=== PATIENT | female | born 1935 | race Caucasian/White ===

== ENCOUNTER 2017-08-18 11:00 | Outpatient (RCR) ==
--- NOTE | 2017-08-08 13:10 | RS.OPPTEV2 ---
Date of Note: 08/06/17 Visit #: 1 Date of Evaluation: 08/06/17 Payer Source: MEDICARE Treatment Diagnosis: Gait abnormality, weakness, history of falls History of Condition/Mechanism of Injury:: Patient reports progressive weakness , decreased endurance, and difficulty walking since her stroke. States she has no energy and feels like she would stay in bed all day if she could. Prior Level of Function.....Patient was independent with: ADL's, Self Care, Ambulation/Mobility, Community Integration/Access Functional Limitations: Standing (transfers sit to stand), Ambulation, Community Access/Integration Current Subjective/complaints:: Patient reports feeling "washed out" all the time. States she feels very weak, with no energy. States she has felt this weak since having the stroke last week. She has used a rollator since the stroke, which was November 2015. She can go short distances without anything, but usually uses the rollator. She reports difficulty getting out of a low seat. She uses a lift chair at home. States she does not use it to stand her up completely. Reports times of having difficulty lifting the left LE up onto her bed. She lives alone. She has someone help her with household activties and shopping. She does her own personal care. States sometimes it is all she can do to take a shower and get dress due to her weakness and low endurance. Reports being under a lot of stress due to being told she can no longer drive. States she lives in a two story home, but does not need to use the stairs. She has a ramp to get into her home. States she has to walk through the living room and dining room to get to the kitchen from her bed room. States that distance wears her out. Also reports difficulty standing to perform activities in the kitchen. She gets short of air at night with much activity. States sometimes the left LE does not move when she wants it to. she has fallen ~ twice over the last 6 months. States she did stumble last week, but emphasizes that she did not fall. 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 Patient's Goals: Her goal is to gain strength and increased safety with activity. Functional Outcome Measure Tinetti: 11 (08/26=60.72% impairment) - G Codes & Severity Modifier G Codes & Modifier: Mob current CL. Mob goal CJ Source of G Code score: Based on Tinetti Assessment Observation - Observation Inspection: Patient presents to therapy with her rollator. Posture: Forward Head, Rounded Shoulders, Increased Thoracic Kyphosis, Decreased Lumbar Lordosis, Posterior Pelvic Tilt Gait - Gait Pattern Gait Comments: Patient ambulates with a rollator, independently. She demonstrates a narrow base of support, and short stride. She demonstrates minimal foot clearance bilaterally with swing phase. Sit to stand transfers requires min to mod assist from the chair in the treatment room. Also demonstrates the need for assistance with raising the left LE onto the treatment table for bed mobility. Patient went to the bathroom and was unable to get up from the toilet without assistance. General Range of Motion: Patient demonstrates functional AROM of bilateral LE's. Muscle Strength: Left hip 4-/5 generally throughout. Right hip 4/5. Bilateral quads 4-/5. HS 4/5. Bilateral ankles 4+/5. Trunk strength 4/5. Sensation - Sensation Right Lower Extremity: Intact/Normal Left Lower Extremity: Intact/Normal Balance - Sitting Balance Static Sitting Balance: Good Dynamic Sitting Balance: Good - Standing Balance Static Standing Balance: Fair (+) Dynamic Standing Balance: Fair (+) Coordination - Tests Left Toe Tapping: Moderate Deviation Right Toe Tapping: Normal/Intact Interventions - Exercise/Activities/Manual Therapy Exercises/Activities: NA Manual Therapy: N/A - Charges Total Direct Minutes: 50 mins Total Treatment Time: 50 mins Procedures billed for this date of service:: EVAL Medium Assessment Assessment: 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 She reports weakness and decreased activity tolerance. States she has difficulty tolerating prolonged standing and walking and feels generally weak and fatigued. She exhibits bilateral hip and knee weakness, with greater weakness on the left LE. She scores 08/26 on the Tinetti Assessment, which indicates she is at a high risk for falls. She also demonstrates impaired coordination of the left LE, which adds to her risk for falls. She demonstrates potential to benefit from LE strengthening and safety training with all mobilty to improve her safety and independence. Patient Education: Education of diagnosis, Education of Plan of Care Rehab Potential: Good Short Term Goals Goal #1: Patient independent and compliant with HEP. Goal to be met by: 08/21/17 Goal #2: Bilateral hip strength 4/5. Goal to be met by: 08/21/17 Goal #3: Bilateral quad strength 4/5. Goal to be met by: 08/21/17 Goal #4: Pt to perform sit to stand from seat height of 18 inches w/ CGA of one. Goal to be met by: 08/21/17 Legal Editor Goals Goal #1: Patient knows HEP and to continue with exercises following D/C from therapy Goal to be met by: 09/15/17 Goal #2: Score on Tinetti Assessment improved to 19/28,showing less fall risk. Goal to be met by: 09/15/17 Goal #3: Pt able to amb. community distances w/ good safety and minimal difficulty. Goal to be met by: 09/15/17 Goal #4: Pt will perform all transfers independently w/ good safety. Goal to be met by: 09/15/17 Plan - Treatment to be Provided Procedures: Therapeutic Exercises, Therapeutic Activity, Gait Training, Neuromuscular Rehab, Patient Education Modalities: No Modalities - Treatment Plan Frequency: 2-3 X week Duration: 4 weeks ORDER # VISITS AND/OR THROUGH DATE: 09/15/17 - Treatment Code (1) Leg weakness Code(s): M62.81 - MUSCLE WEAKNESS (GENERALIZED) Qualifiers: Laterality: bilateral Qualified Code(s): R29.898 - Other symptoms and signs involving the musculoskeletal system (2) Gait abnormality Code(s): R26.9 - UNSPECIFIED ABNORMALITIES OF GAIT AND MOBILITY Comments: R26.9 (3) Coordination impairment Code(s): R27.8 - OTHER LACK OF COORDINATION Comments: R27.8
--- NOTE | 2017-08-08 16:05 | RS.OPPTDN ---
Subjective Date of Note: 08/08/17 Visit #: 2 Date of Evaluation: 08/06/17 Payer Source: MEDICARE Treatment Diagnosis: Gait abnormality, weakness, history of falls Current Subjective/complaints:: Patient reports being winded after a few exercises today. States she wants to get stronger and have more energy. She would also be interested in exercises that might help improve bladder control. States she has had bladder leakage since having the stroke last year. Reports left knee pain during exercises of SAQ's today. Interventions - Exercise/Activities/Manual Therapy Exercises/Activities: Pt performed exercises in supine of SAQ's with 1 1/2# wt and HS curls with yellow theraband on the right LE 2 sets of 10. Attempted these with the left LE, but reports pain with flexion and extension of the left knee. Performed SLR bilaterally 2 X 10 reps with assistance. Performs isometric hip adduction, abduction, and trunk rotation, 2 sets of 5 reps. Also performs bridging 2 sets of 5 reps and resisted hip flexion with 1 1/2# wt. In sitting, patient performs LAQ's on the right and SAQ on the left from ~80 to 65 degrees flexion to avoid knee pain. She reports shortness of air after much exertion. Patient given rest breaks between activities. Oxygen saturation 96% during rest breaks. Manual Therapy: N/A HOME EXERCISE PROGRAM: None given at this time. - Objective Findings Observations,measurements,etc.: Patient attempts to perform sit to stand from chair height of 18 inches. She needs min to mod assist of one to perform sit to stand, after trying unsuccessully on her own. Patient went to the bathroom and required mod-max assist of one to get up from the toilet. - Charges Total Direct Minutes: 35 mins Total Treatment Time: 35 mins Procedures billed for this date of service:: EX2 Assessment: Patient tolerates exercises for the LE's and trunk. She exhibits some shortness of air during activities, which resolves with rest breaks. Sit to stand transfers are very difficult from a low surface. She demonstrates potential to benefit from strengthening exercises to increase her independence and safety. Patient Education: Education of diagnosis, Body/Joint mechanics, Home Safety, Activity Modification Short Term Goals Goal #1: Patient independent and compliant with HEP. Goal to be met by: 08/21/17 Goal #2: Bilateral hip strength 4/5. Goal to be met by: 08/21/17 Goal #3: Bilateral quad strength 4/5. Goal to be met by: 08/21/17 Goal #4: Pt to perform sit to stand from seat height of 18 inches w/ CGA of one. Goal to be met by: 08/21/17 Airline Captain Goals Goal #1: Patient knows HEP and to continue with exercises following D/C from therapy Goal to be met by: 09/15/17 Goal #2: Score on Tinetti Assessment improved to 19/28,showing less fall risk. Goal to be met by: 09/15/17 Goal #3: Pt able to amb. community distances w/ good safety and minimal difficulty. Goal to be met by: 09/15/17 Goal #4: Pt will perform all transfers independently w/ good safety. Goal to be met by: 09/15/17 Plan PLAN OF CARE EXPIRES ON:: 09/15/17 ORDER # VISITS AND/OR THROUGH DATE: 09/15/17 PLAN: Progress strengthening exercises for the LE's and trunk. May add standing exercises on next visit if patient tolerates.
--- NOTE | 2017-08-12 13:32 | RS.OPPTDN ---
Subjective Date of Note: 08/12/17 Visit #: 3 Date of Evaluation: 08/06/17 Payer Source: MEDICARE Treatment Diagnosis: Gait abnormality, weakness, history of falls Current Subjective/complaints:: Patient reports no soreness after last treatment session. States she feels like her air is cut off when lying inclined on her back for exercises. States she feels grinding and pain in the left knee during LAQ's. Interventions - Exercise/Activities/Manual Therapy Exercises/Activities: Initiated exercises in supine with patient's head and shoulders elevated. She performed resisted hip flexion with 2 # weight 2 sets of 10. Stated she felt like her air was being cut off, so exercises were discontinued in supine. In sitting, patient performs LAQ's on the right and SAQ on the left from ~80 to 65 degrees flexion to avoid knee pain with 2# weight. Performed resisted HS curls with red theraband. Alternating hip flexion with 2# weight on each ankle, 2 sets of 10 reps. Performs hip adduction isometrics with pillow. Performs bilateral shoulder flexion with ball to extend her trunk and open her chest. Also performs bilateral shoulder ER with yellow theraband. Oxygen saturation 96-97% during activites. Patient given time to rest between sets of exercises. Patient took a break to go to the bathroom. Patient unable to get up from toilet with max of one. Finally able to get patient up with mod of 2. Patient rested then performed standing exercises of mini knee bends, marching in place, alternate hip abduction and extension. Reviewed techniques to improve ease of sit to stand transfers. Discussed having feet under her knees, scooting out to edge, leaning forward, and counting to three to use momentum . Total minutes of Exercise: 42 mins Manual Therapy: N/A HOME EXERCISE PROGRAM: pillow squeeze (hip adduction isometrics) - Charges Total Direct Minutes: 42 mins Total Treatment Time: 55 mins Procedures billed for this date of service:: EX3 Assessment: Patient demonstrates great difficulty with sit to stand transfers. She has difficulty tolerating exercises in supine due to her breathing. She demonstrates the need for skilled care to progress her exercises and activities as indicated to improve her strength and independence with transfers. Patient Education: Education of diagnosis, Body/Joint mechanics, Home Exercise Program, Activity Modification Short Term Goals Goal #1: Patient independent and compliant with HEP. Goal to be met by: 08/21/17 Goal #2: Bilateral hip strength 4/5. Goal to be met by: 08/21/17 Goal #3: Bilateral quad strength 4/5. Goal to be met by: 08/21/17 Goal #4: Pt to perform sit to stand from seat height of 18 inches w/ CGA of one. Goal to be met by: 08/21/17 Long-Term Goals Goal #1: Patient knows HEP and to continue with exercises following D/C from therapy Goal to be met by: 09/15/17 Goal #2: Score on Tinetti Assessment improved to 19/28,showing less fall risk. Goal to be met by: 09/15/17 Goal #3: Pt able to amb. community distances w/ good safety and minimal difficulty. Goal to be met by: 09/15/17 Goal #4: Pt will perform all transfers independently w/ good safety. Goal to be met by: 09/15/17 Plan PLAN OF CARE EXPIRES ON:: 09/15/17 ORDER # VISITS AND/OR THROUGH DATE: 09/15/17 PLAN: Plan to continue to progress exercises as tolerated to gain increased LE strength.
--- NOTE | 2017-08-14 16:15 | RS.OPPTDN ---
Subjective Date of Note: 08/14/17 Visit #: 4 Date of Evaluation: 08/06/17 Payer Source: MEDICARE Treatment Diagnosis: Gait abnormality, weakness, history of falls Current Subjective/complaints:: Patient legs cramped a lot Friday night. States she had a hard to getting any sleep due to leg cramping. Pain Assessment - Pain Description Pain Location: left knee Current Pain Intensity: not rated, reports arthritis and grinding in the left knee w/ exercises Interventions - Exercise/Activities/Manual Therapy Exercises/Activities: Pt wished to avoid supine position for exercises. In sitting, patient performed LAQ's on the right and SAQ on the left from ~90 to 65 degrees flexion to avoid knee pain with 2# weight. Performed resisted HS curls with red theraband. Alternating hip flexion with 2# weight on each ankle, 2 sets of 10 reps. Performs hip adduction isometrics with pillow. Performs bilateral shoulder flexion with ball to extend her trunk and open her chest. . Patient given breaks to rest as she became short of breath with exercises. Patient rested then performed standing exercises of mini knee bends, marching in place, alternate hip abduction and extension. Practiced sit to stand transfers. Pt tries to stand straight up rather than leaning forward. When she follows verbal cues to lean forward, she does better and needs less assistance to stand up. Patient performed on leg press with assistance and 15# for bilateral LE's, 3 sets of 4 reps. Manual Therapy: N/A HOME EXERCISE PROGRAM: pillow squeeze (hip adduction isometrics) - Charges Total Direct Minutes: 32 mins Total Treatment Time: 50 mins Procedures billed for this date of service:: EX2 Assessment: Patient continues to have difficulty with sit to stand transfers. This seems to be due to her wanting to standing straight from the chair rather than leaning forward. She will benefit from continued instruction of proper techinque and continue LE and trunk strengthening to improve her independence with activities. Patient Education: Education of diagnosis, Body/Joint mechanics, Home Safety, Activity Modification, Education of Plan of Care Short Term Goals Goal #1: Patient independent and compliant with HEP. Goal to be met by: 08/21/17 Goal #2: Bilateral hip strength 4/5. Goal to be met by: 08/21/17 Goal #3: Bilateral quad strength 4/5. Goal to be met by: 08/21/17 Goal #4: Pt to perform sit to stand from seat height of 18 inches w/ CGA of one. Goal to be met by: 08/21/17 Field Crop Grower Goals Goal #1: Patient knows HEP and to continue with exercises following D/C from therapy Goal to be met by: 09/15/17 Goal #2: Score on Tinetti Assessment improved to 19/28,showing less fall risk. Goal to be met by: 09/15/17 Goal #3: Pt able to amb. community distances w/ good safety and minimal difficulty. Goal to be met by: 09/15/17 Goal #4: Pt will perform all transfers independently w/ good safety. Goal to be met by: 09/15/17 Plan PLAN OF CARE EXPIRES ON:: 09/15/17 ORDER # VISITS AND/OR THROUGH DATE: 09/15/17 PLAN: Continue with education and training to improve transfers and exercises to increase LE and trunk strength for increased independence.
--- NOTE | 2017-08-18 13:01 | RS.OPPTDN ---
Subjective Date of Note: 08/18/17 Visit #: 5 Date of Evaluation: 08/06/17 Payer Source: MEDICARE Treatment Diagnosis: Gait abnormality, weakness, history of falls Current Subjective/complaints:: Patient reports she has been leaning forward more to perform sit to stand transfers and can tell that it helps. Reports having a good day today. States she can tell she needs to keep working on the balance activities. Interventions - Exercise/Activities/Manual Therapy Exercises/Activities: In sitting, patient performed LAQ's on the right and SAQ on the left from ~90 to 65 degrees flexion to avoid knee pain with 2# weight, 2 sets of 10 reps each. Performed resisted HS curls with red theraband 2 sets of 10 reps. Alternating hip flexion with 2# weight on each ankle, 2 sets of 10 reps. Performs bilateral shoulder flexion with ball to extend her trunk and open her chest. . Patient given breaks to rest. She demonstrates light wheezing during exercises. Pulse ox is 95-96% when tested immediately after exercises. Patient performed standing exercises of mini knee bends, marching in place, alternate hip abduction and extension. Patient has more difficulty with left UE due to weakness. Patient performed on leg press with assistance and 15# for bilateral LE's, 3 sets of 8 reps. Performed standing dynamic balance activities. Slight forward lunge onto blue theraband balance pad with the right LE, and then returned to neutral. Left knee could not tolerate this activity with use of the pad. She was able to perform just a forward step and return to neutral on the left. Patient rested again and then performed standing dynamic weight shifting in all directions. Patient needs hands-on assistance when moving the left LE. States she does not have as much control of the left LE. Total minutes of Exercise: 34 ther ex, 12 neuro Manual Therapy: N/A HOME EXERCISE PROGRAM: pillow squeeze (hip adduction isometrics) , practice of sit to stand transfers with leaning forward. - Objective Findings Observations,measurements,etc.: Patient performs sit to stand transfers multiple times today. She demonstrates more independence as she is purposely leaning forward more as instructed during last therapy session. - Charges Total Direct Minutes: 46 mins Total Treatment Time: 56 mins Procedures billed for this date of service:: Ex 2, Neuro Assessment: Patient demonstrates more independence with Sit to stand transfers. She has been very receptive to all advice. She shows the need for increase strengthening and balance reaction activities to improve her safety with mobility. Short Term Goals Goal #1: Patient independent and compliant with HEP. Goal to be met by: 08/21/17 Goal #2: Bilateral hip strength 4/5. Goal to be met by: 08/21/17 Goal #3: Bilateral quad strength 4/5. Goal to be met by: 08/21/17 Goal #4: Pt to perform sit to stand from seat height of 18 inches w/ CGA of one. Goal to be met by: 08/21/17 Progress towards Goal:: Progressing Warehouse Foreman Goals Goal #1: Patient knows HEP and to continue with exercises following D/C from therapy Goal to be met by: 09/15/17 Goal #2: Score on Tinetti Assessment improved to 19/28,showing less fall risk. Goal to be met by: 09/15/17 Goal #3: Pt able to amb. community distances w/ good safety and minimal difficulty. Goal to be met by: 09/15/17 Goal #4: Pt will perform all transfers independently w/ good safety. Goal to be met by: 09/15/17 Plan PLAN OF CARE EXPIRES ON:: 09/15/17 ORDER # VISITS AND/OR THROUGH DATE: 09/15/17 PLAN: Continue to progress LE strengthening and balance reaction activities to improve her safety and independence.
--- NOTE | 2017-08-22 09:36 | RS.CXNS ---
Date of scheduled appointment: 08/22/17 Type: Cancel Reason for Cancel/NS: Patient's caregiver calls to report that Mrs. Medrano has been admitted to the hospital due to fluid.
== END 2017-08-28 ==
PROVIDERS: ATTEND Family Medicine
DX: R26.9 Unspecified abnormalities of gait and mobility (principal)

== ENCOUNTER 2017-08-21 09:03 | Outpatient (CLI) | END 2017-08-21 09:04 | disposition short-term general hospital (02) | LOC: AMBL 09:03 | PROVIDERS: ATTEND Family Medicine | DX: R06.02 Shortness of breath (principal); R05 Cough; R09.89 Other specified symptoms and signs involving the circulatory and respiratory systems; R06.2 Wheezing; R00.0 Tachycardia, unspecified; R07.9 Chest pain, unspecified ==

== ENCOUNTER 2017-09-23 13:00 | Outpatient (RCR) ==
--- NOTE | 2017-09-03 14:36 | RS.OPPTDN ---
Subjective Date of Note: 09/01/17 Visit #: 7 Date of Evaluation: 08/06/17 Payer Source: MEDICARE Treatment Diagnosis: Gait abnormality, weakness, history of falls Current Subjective/complaints:: Patient states she feels bettter. States she got out yesterday to the [place] [employer]. States she has had a better appetite and sleeping well. She states she wants to do as much as she can to get stronger and feel better. Interventions - Exercise/Activities/Manual Therapy Exercises/Activities: In sitting, patient performed LAQ's on the right and SAQ on the left from ~90 to 65 degrees flexion to avoid knee pain with 2# weight, 2 sets of 10 reps each. Performed resisted HS curls with red theraband 2 sets of 10 reps. Alternating hip flexion with 2# weight on each ankle, 2 sets of 10 reps. Performs bilateral shoulder flexion with ball to extend her trunk and open her chest. . Patient rested following activity with the ball. Patient performed standing exercises of mini knee bends, marching in place, alternate hip abduction and extension. Patient performed on leg press with assistance and 15# for bilateral LE's, 2 sets of 8 reps. Performed standing dynamic balance activities. Slight forward lunge onto blue theraband balance pad with the right LE, and then returned to neutral. Performs a small lunge X 5 on the left LE without the pad. Manual Therapy: N/A HOME EXERCISE PROGRAM: pillow squeeze (hip adduction isometrics) , practice of sit to stand transfers with leaning forward. - Objective Findings Observations,measurements,etc.: Patient consistently performs sit to stand transfer with CGA of one or less. - Charges Timed Code Treatment Minutes: 46 mins Total Treatment Time: 56 mins Procedures billed for this date of service:: EX2, ADL Assessment: Patient tolerates more activity today. She also requires less rest breaks with exercises. She appears in better spirits and has improved color to her face. Patient Education: Education of diagnosis, Home Exercise Program, Activity Modification Short Term Goals Goal #1: Patient independent and compliant with HEP. Goal to be met by: 08/21/17 Goal #2: Bilateral hip strength 4/5. Goal to be met by: 08/21/17 Goal #3: Bilateral quad strength 4/5. Goal to be met by: 08/21/17 Progress towards Goal:: Progressing Goal #4: Pt to perform sit to stand from seat height of 18 inches w/ CGA of one. Goal to be met by: 08/21/17 Progress towards Goal:: Met Halfway Goals Goal #1: Patient knows HEP and to continue with exercises following D/C from therapy Goal to be met by: 09/15/17 Goal #2: Score on Tinetti Assessment improved to 19/28,showing less fall risk. Goal to be met by: 09/15/17 Goal #3: Pt able to amb. community distances w/ good safety and minimal difficulty. Goal to be met by: 09/15/17 Goal #4: Pt will perform all transfers independently w/ good safety. Goal to be met by: 09/15/17 Plan PLAN OF CARE EXPIRES ON:: 09/15/17 ORDER # VISITS AND/OR THROUGH DATE: 09/15/17 PLAN: Progress balance and LE strengthening exercises.
--- NOTE | 2017-09-08 14:48 | RS.CXNS ---
Date of scheduled appointment: 09/08/17 Type: Cancel Reason for Cancel/NS: Ms. Cheng calls to cancel Navya's appointment today due to patient's knee having more pain today. They are hoping to get her into her doctor regarding her knee pain.
--- NOTE | 2017-09-09 08:59 | RS.OPPTDN ---
Subjective Date of Note: 09/03/17 Visit #: 8 Date of Evaluation: 08/06/17 Payer Source: MEDICARE Treatment Diagnosis: Gait abnormality, weakness, history of falls Current Subjective/complaints:: Patient reports that she saw her doctor yesterday for a follow up from her hospital stay. States the doctor said she is doing better. Interventions - Exercise/Activities/Manual Therapy Exercises/Activities: In sitting, patient performed LAQ's on the right and SAQ on the left from ~90 to 50 degrees flexion to avoid knee pain with 2# weight, 2 sets of 10 reps each. Performed resisted HS curls with red theraband 2 sets of 10 reps. Alternating hip flexion with 2# weight on each ankle, 2 sets of 10 reps. Performs bilateral shoulder flexion with ball to extend her trunk and open her chest. . Patient rested between sets of exercises. Patient performed on leg press with assistance and 15# for bilateral LE's, 2 sets of 8 reps. Performed standing dynamic balance activities. Slight forward lunge onto blue theraband balance pad with the right LE, and then returned to neutral. Performs a small lunge X 5 on the left LE without the pad. Patient needs CGA assist for right LE and min assiste for the left leg activity. Performs on stationary bike for 3 mins. Total minutes of Exercise: 52 mins Manual Therapy: N/A HOME EXERCISE PROGRAM: pillow squeeze (hip adduction isometrics) , practice of sit to stand transfers with leaning forward. - Charges Timed Code Treatment Minutes: 52 mins Total Treatment Time: 65 min Procedures billed for this date of service:: Ex2, ADL Assessment: Patient tolerating more activities in the department. Demonstrates difficulty with balance activities when leading with the left LE. Will benefit from continued skilled therapy to improve her balance and safety with all mobility. Patient Education: Education of diagnosis, Home Exercise Program, Activity Modification, Education of Plan of Care Short Term Goals Goal #1: Patient independent and compliant with HEP. Goal to be met by: 09/14/17 Progress towards Goal:: Progressing Goal #2: Bilateral hip strength 4/5. Goal to be met by: 09/14/17 Progress towards Goal:: Progressing Goal #3: Bilateral quad strength 4/5. Goal to be met by: 09/14/17 Progress towards Goal:: Progressing Goal #4: Pt to perform sit to stand from seat height of 18 inches w/ CGA of one. Goal to be met by: 08/21/17 Progress towards Goal:: Met Usp Goals Goal #1: Patient knows HEP and to continue with exercises following D/C from therapy Goal to be met by: 09/15/17 Progress towards goal: Progressing Goal #2: Score on Tinetti Assessment improved to 19/28,showing less fall risk. Goal to be met by: 09/15/17 Goal #3: Pt able to amb. community distances w/ good safety and minimal difficulty. Goal to be met by: 09/15/17 Goal #4: Pt will perform all transfers independently w/ good safety. Goal to be met by: 09/15/17 Progress towards goal: Progressing Plan PLAN OF CARE EXPIRES ON:: 09/15/17 ORDER # VISITS AND/OR THROUGH DATE: 09/15/17 PLAN: Will progress LE strengthening and balance activities.
--- NOTE | 2017-09-15 14:20 | RS.OPPTDN ---
Subjective Date of Note: 09/10/17 Visit #: 9 Date of Evaluation: 08/06/17 Payer Source: MEDICARE Treatment Diagnosis: Gait abnormality, weakness, history of falls Current Subjective/complaints:: Patient states her knee is better today. She went to the walk-in clinic at the [facility] and received an injeciton. States the knee feels better, but she doesn't feel good. States she has been more short of breath today and having a lot of anxiety. States she was told left knee pain may be gout. Interventions - Exercise/Activities/Manual Therapy Exercises/Activities: Patient requires min assist with transfers today. Sit to stand requires verbal cues to lean forward and physical assistance to get up from the chair. Performs LAQ's in sitting with 2.5 # weight on the right LE and no weight put on the left LE today for SAQ's, both 2 sets of 10 reps. Patient requested to rest and demonstrates labored breathing. Performed hip flexion in sitting with 2.5# on right ankle. Tolerates only 5 reps each before needing to stop to catch her breath. Pulse ox at 90% immediately after 2 sets of hip flexion exercises. Performs bilateral shoulder flexion with ball X 4 reps and then needs to stop to catch her breath. Performs standing weight shifting onto right LE on the blue theraband pad X 2 sets of 5 reps. Then sat down to rest. Pulse ox 96%. Patient performed on leg press with 15#, 4 sets of 8 reps. Patient rests between each set. After the first set, patient's O2 saturation 92%. Discussed pursed lip breathing and explained how to do it. Patient performed pursed lip breathing after each set. Advised patient that we will try to do more at her next session due to her difficulty tolerating activity today. Manual Therapy: N/A HOME EXERCISE PROGRAM: pillow squeeze (hip adduction isometrics) , practice of sit to stand transfers with leaning forward. - Objective Findings Observations,measurements,etc.: Right hip flexion 4+/5, left hip flexion 4/5. - Charges Timed Code Treatment Minutes: 33 mins Total Treatment Time: 45 mins Procedures billed for this date of service:: EX, Neuro Assessment: Patient very short of breath today. Requires more frequent rests between exercise sets due to shortness of breath. Also requires more assistance with transfers. Weight avoided on left LE today due to exacerbation of left knee pain and recent injection. Patient's dates run out this coming Friday. She has made progress and demonstrates potential to gain increased strength, balance, and safety with continued skilled therapy. Will request continuation order for 2-3 more weeks. Patient Education: Body/Joint mechanics, Education of Plan of Care Short Term Goals Goal #1: Patient independent and compliant with HEP. Goal to be met by: 09/14/17 Progress towards Goal:: Progressing Goal #2: Bilateral hip strength 4/5. Goal to be met by: 09/14/17 Progress towards Goal:: Progressing Goal #3: Bilateral quad strength 4/5. Goal to be met by: 09/14/17 Progress towards Goal:: Progressing Goal #4: Pt to perform sit to stand from seat height of 18 inches w/ CGA of one. Goal to be met by: 08/21/17 Progress towards Goal:: Met Shellfish Manager Goals Goal #1: Patient knows HEP and to continue with exercises following D/C from therapy Goal to be met by: 09/15/17 Progress towards goal: Progressing Goal #2: Score on Tinetti Assessment improved to 19/28,showing less fall risk. Goal to be met by: 09/15/17 Goal #3: Pt able to amb. community distances w/ good safety and minimal difficulty. Goal to be met by: 09/15/17 Goal #4: Pt will perform all transfers independently w/ good safety. Goal to be met by: 09/15/17 Progress towards goal: Progressing Plan PLAN OF CARE EXPIRES ON:: 09/15/17 ORDER # VISITS AND/OR THROUGH DATE: 09/15/17 PLAN: Message left with Dr. Alvarez asking for continuation order.
--- NOTE | 2017-09-15 14:49 | RS.PTSUM ---
Progress Note/Summary Date of Note: 09/15/17 Date of Evaluation: 08/06/17 Number of Visits: 10 Reporting Period for this Progress Note: 08/06/17 through 09/15/17 Current Complaints/Gains: Patient states she is feeling better. She feels she has had a set back with her breathing and the left knee bothering her. She wishes to do more therapy to get stronger and improve her balance. Objective Measurements/Presentation: Patient ambulates with rollator with consistent clearing of feet. Demonstrates SOA after ambulating to department. Patient performs sit to stand with SBA. She exhibits better form with leaning forward to get out of chair. Performs standing exercises on foam pad with CHIP TESTER: mini-squats, weight shifting side to side and diagonally. Also performs mini forward lunge onto blue theraband foam pad X 2 sets of 5 reps. Performs hip flexion with 2.5# 3 sets of 5 reps. Patient has to stop to rest after each set due to shortness of air. O2 sat. 96% immediately following exercises. Patient performs pursed lip breathing as instructed at last visit. Performs on leg press 15#, 2 sets of 5 reps, then asks to stop due to left knee pain. Peformed dynamic exercises for trunk balance and strengthening: raises ball over head with both arms X 5 reps. Must rest after one set. Performs on bike for 3 mins , needing to rest each minute due to SOA. Pulse ox at 98% when stopping to rest. Timed code treatment minutes: 42 mins, Total treatment time 53 mins. G Codes: Mob current CK, Mob goal CJ Source of G Code Score: Tinetti Assessment: today scores 15/28=46.25% impairment. Improvement in the following areas: able to rise from chair, no hesitancy with initiation of gait, clears left foot consistently. - Short Term Goals Goal #1: Patient independent and compliant with HEP. Goal to be met by: 09/30/17 Progress towards Goal:: Progressing Goal #2: Bilateral hip strength 4/5. Goal to be met by: 09/30/17 Progress towards Goal:: Progressing Goal #3: Bilateral quad strength 4/5. Goal to be met by: 09/30/17 Progress towards Goal:: Progressing Goal #4: Pt to perform sit to stand from seat height of 18 inches w/ CGA of one. Goal to be met by: 08/21/17 Progress towards Goal:: Met - Shoulder Puncher Goals Goal #1: Patient knows HEP and to continue with exercises following D/C from therapy Goal to be met by: 10/10/17 Progress towards goal: Progressing Goal #2: Score on Tinetti Assessment improved to 19/28,showing less fall risk. Goal to be met by: 10/10/17 Progress towards goal: Progressing Goal #3: Pt able to amb. community distances w/ good safety and minimal difficulty. Goal to be met by: 10/10/17 Progress towards goal: Progressing Goal #4: Pt will perform all transfers independently w/ good safety. Goal to be met by: 10/10/17 Progress towards goal: Progressing - Assessment Assessment of Improvement/Progress: Patient shows progress with Tinetti Assessment. She has had some set backs with a hospitalization and requiring more rests due to SOA, but has shown progress with ability with transfers and safety with ambulation. She shows potential and is highly motivated to gain more strength and balance. We received a continuation order from Dr. Alvarez. Summary: Patient has made progress towards goals., Patient demonstrates potential to gain increased function with therapy - Plan Plan: Continue Plan of Care (Continuation order received) Frequency: 2 X week Duration: 3 weeks PLAN OF CARE EXPIRES ON:: 10/10/17 ORDER # VISITS AND/OR THROUGH DATE: 10/10/17
--- NOTE | 2017-09-17 14:37 | RS.OPPTDN ---
Subjective Date of Note: 09/17/17 Visit #: 11 Date of Evaluation: 08/06/17 Payer Source: MEDICARE Treatment Diagnosis: Gait abnormality, weakness, history of falls Current Subjective/complaints:: Patient states she fell this morning. States she was trying to catch a cricket and the chair she was supporting herself on, moved and she lost her balance and fell. States the left knee feels like she must have hit it. She did hit her head on the carpeted floor. States she does not have a headache and she did not lose consciousness. States she called her daughter, who came to help her get up. Pain Assessment - Pain Description Pain Location: left knee sore Interventions - Exercise/Activities/Manual Therapy Exercises/Activities: Patient performs LAQ's on the right LE with 3# weight, 3 sets of 8 reps. Attempted SAQ's on the left LE, but patient reports left knee too sore. Performed alternating hip flexion with 3# weight on each leg, 2 sets of 8 reps. Performs bilateral shoulder flexion with ball 3 sets of 5 reps. Performed with yellow theraband for shoulder horizontal abduction while sitting. Demonstrates less shortness of breath today. Oxygen saturation immediately following exercises 96% and 98%. Performs standing activities on large foam pad of weight shifting laterally, heel/toe raises, and mini-squats. Patient did not perform on the leg press or the bike due to left knee soreness from fall this morning. Total minutes of Exercise: X 32 mins Manual Therapy: N/A HOME EXERCISE PROGRAM: pillow squeeze (hip adduction isometrics) , practice of sit to stand transfers with leaning forward. - Charges Timed Code Treatment Minutes: 32 mins Total Treatment Time: 42 mins (includes rest breaks) Procedures billed for this date of service:: Ex 2 Assessment: Patient tolerates greater weight with right knee and bilateral hip exercises. Also demonstrates less shortness of breath today. Some activities were avoided today that bothered the left knee, which was sore from her fall this morning. Patient demonstrates potential to benefit from progressed balance and strengthening exercises next week. Short Term Goals Goal #1: Patient independent and compliant with HEP. Goal to be met by: 09/30/17 Progress towards Goal:: Progressing Goal #2: Bilateral hip strength 4/5. Goal to be met by: 09/30/17 Progress towards Goal:: Progressing Goal #3: Bilateral quad strength 4/5. Goal to be met by: 09/30/17 Progress towards Goal:: Progressing Goal #4: Pt to perform sit to stand from seat height of 18 inches w/ CGA of one. Goal to be met by: 08/21/17 Progress towards Goal:: Met Farm Machinery Set Up Mechanic Goals Goal #1: Patient knows HEP and to continue with exercises following D/C from therapy Goal to be met by: 10/10/17 Progress towards goal: Progressing Goal #2: Score on Tinetti Assessment improved to 19/28,showing less fall risk. Goal to be met by: 10/10/17 Progress towards goal: Progressing Goal #3: Pt able to amb. community distances w/ good safety and minimal difficulty. Goal to be met by: 10/10/17 Progress towards goal: Progressing Goal #4: Pt will perform all transfers independently w/ good safety. Goal to be met by: 10/10/17 Progress towards goal: Progressing Plan PLAN OF CARE EXPIRES ON:: 10/10/17 ORDER # VISITS AND/OR THROUGH DATE: 10/10/17 PLAN: Progress balance and strengthening activities to improve her safety.
--- NOTE | 2017-09-23 16:13 | RS.OPPTDN ---
Subjective Date of Note: 09/23/17 Visit #: 12 Date of Evaluation: 08/06/17 Payer Source: MEDICARE Treatment Diagnosis: Gait abnormality, weakness, history of falls Current Subjective/complaints:: Ms. Medrano states she can tell she is getting stronger. States getting in and out of the car is easier. States her left knee is less sore today, but she was still like to avoid the stationary bike or the leg press for now. Interventions - Exercise/Activities/Manual Therapy Exercises/Activities: Patient performs LAQ's on the right LE with 3# weight and left LE 0 weight, 3 sets of 8 reps. Performed alternating hip flexion with 3# weight on each leg, 2 sets of 8 reps. Performs bilateral shoulder flexion with ball 3 sets of 5 reps. Performed with yellow theraband for shoulder horizontal abduction and scapular retraction. Exhibits only one episode of some shortness of breath. Pulse Ox 98%. Performs standing activities on large foam pad of weight shifting laterally, heel/toe raises, and mini-squats. Patient assisted onto [employer] Balance software trainer. Patient performed lateral and diagonal weight shifting. Also performed Limits of stability on easiest level and moved her feet to hit the targets. Total minutes of Exercise: 42 mins Manual Therapy: N/A HOME EXERCISE PROGRAM: pillow squeeze (hip adduction isometrics) , practice of sit to stand transfers with leaning forward. - Charges Timed Code Treatment Minutes: 42 mins Total Treatment Time: 52 mins Procedures billed for this date of service:: Ex2, Neuro Assessment: Patient with subjective reports of feeling stronger and more ease with getting in and out of her vehicle. Patient Education: Education of diagnosis, Body/Joint mechanics, Home Safety, Activity Modification Short Term Goals Goal #1: Patient independent and compliant with HEP. Goal to be met by: 09/30/17 Progress towards Goal:: Progressing Goal #2: Bilateral hip strength 4/5. Goal to be met by: 09/30/17 Progress towards Goal:: Progressing Goal #3: Bilateral quad strength 4/5. Goal to be met by: 09/30/17 Progress towards Goal:: Progressing Goal #4: Pt to perform sit to stand from seat height of 18 inches w/ CGA of one. Goal to be met by: 08/21/17 Progress towards Goal:: Met Assistant Family Teacher Goals Goal #1: Patient knows HEP and to continue with exercises following D/C from therapy Goal to be met by: 10/10/17 Progress towards goal: Progressing Goal #2: Score on Tinetti Assessment improved to 19/28,showing less fall risk. Goal to be met by: 10/10/17 Progress towards goal: Progressing Goal #3: Pt able to amb. community distances w/ good safety and minimal difficulty. Goal to be met by: 10/10/17 Progress towards goal: Progressing Goal #4: Pt will perform all transfers independently w/ good safety. Goal to be met by: 10/10/17 Progress towards goal: Progressing Plan PLAN OF CARE EXPIRES ON:: 10/10/17 ORDER # VISITS AND/OR THROUGH DATE: 10/10/17 PLAN: continue to progress balance and LE strengthening exercises.
--- NOTE | 2017-09-30 09:34 | RS.CXNS ---
Date of scheduled appointment: 09/25/17 Type: Cancel Reason for Cancel/NS: Patient's plastic parts designer caregiver calls to state Ms. Medrano does not want to get out this week due to all of the flu going around. Rescheduled for next week.
== END 2017-09-28 ==
PROVIDERS: ATTEND Family Medicine
DX: R26.9 Unspecified abnormalities of gait and mobility (principal)

== ENCOUNTER 2017-10-23 13:00 | Outpatient (RCR) | payer OTHER ==
--- NOTE | 2017-09-30 13:56 | RS.OPPTDN ---
Subjective Date of Note: 09/30/17 Visit #: 13 Date of Evaluation: 08/06/17 Payer Source: MEDICARE Treatment Diagnosis: Gait abnormality, weakness, history of falls Current Subjective/complaints:: States she is feeling good today. States she feels like she did good today following her therapy session. Interventions - Exercise/Activities/Manual Therapy Exercises/Activities: Patient performs LAQ's on the right LE with 3# weight and left LE 0 weight, 3 sets of 8 reps. Performed alternating hip flexion with 3# weight on each leg, 2 sets of 8 reps. Performs isometric hip adduction with ball , 2 sets of 8 reps. Red theraband used for hip abduction, 2 sets of 8 reps. Demonstrates difficulty performing this symmetrically due to left hip being weaker. Performs bilateral shoulder flexion with ball 3 sets of 5 reps. Performed with yellow theraband for shoulder horizontal abduction and scapular retraction. Practiced sit to stand transfers from the chair 6 times. Today she presents trying to stand straight up. Reminded of leaning forward "nose over the toes". Pt requires more attempts to stand today. Performs standing activities on large foam pad of weight shifting laterally, heel/toe raises, and mini-squats. Patient assisted onto [employer] Balance bandage winding machine operator. Patient performed lateral and diagonal weight shifting. Performs activities on Random Control on easiest skill level. Patient holds onto rails to maintain her balance. Performed on leg press for heel raises and knee extension 2 sets of 8 reps. Patient stops to rest and catch her breath between sets. Performs on BAPS board while sitting,with assistance for each ankle. patient has difficulty with the left ankle for lateral movement. Manual Therapy: N/A HOME EXERCISE PROGRAM: pillow squeeze (hip adduction isometrics) , practice of sit to stand transfers with leaning forward, yellow theraband for scapular retraction. - Charges Timed Code Treatment Minutes: 52 mins Total Treatment Time: 59 mins Procedures billed for this date of service:: EX, Neuro, therapeutic activity Assessment: Patient needing more assistance and reminders for sit to stand transfers. She did a variety of activities today with good tolerance for all of them. She demonstrates to have benefitted from strengthening and balance activities and will benefit from continued activities to further improve her level of function and safety. Patient demonstrates compliance with HEP?: Yes Short Term Goals Goal #1: Patient independent and compliant with HEP. Goal to be met by: 09/30/17 Progress towards Goal:: Met Goal #2: Bilateral hip strength 4/5. Goal to be met by: 09/30/17 Progress towards Goal:: Partially Met Comments:: Right hip 4/5. Left hip generally 4-/5. Goal #3: Bilateral quad strength 4/5. Goal to be met by: 09/30/17 Progress towards Goal:: Partially Met Comments:: Right quad 4/5. Left 4-/5. Goal #4: Pt to perform sit to stand from seat height of 18 inches w/ CGA of one. Goal to be met by: 08/21/17 Progress towards Goal:: Met Halfway Goals Goal #1: Patient knows HEP and to continue with exercises following D/C from therapy Goal to be met by: 10/10/17 Progress towards goal: Progressing Goal #2: Score on Tinetti Assessment improved to 19/28,showing less fall risk. Goal to be met by: 10/10/17 Progress towards goal: Progressing Goal #3: Pt able to amb. community distances w/ good safety and minimal difficulty. Goal to be met by: 10/10/17 Progress towards goal: Progressing Goal #4: Pt will perform all transfers independently w/ good safety. Goal to be met by: 10/10/17 Progress towards goal: Progressing Plan PLAN OF CARE EXPIRES ON:: 10/10/17 ORDER # VISITS AND/OR THROUGH DATE: 10/10/17 PLAN: Continue balance exercises and strengthening.
--- NOTE | 2017-10-02 14:44 | RS.OPPTDN ---
Subjective Date of Note: 10/02/17 Visit #: 14 Date of Evaluation: 08/06/17 Payer Source: MEDICARE Treatment Diagnosis: Gait abnormality, weakness, history of falls Current Subjective/complaints:: Patient reports she was sore this morning when she woke up. Reports no soreness in the left knee following leg press on last visit. Interventions - Exercise/Activities/Manual Therapy Exercises/Activities: Performed sit to stand with verbal cues and CGA of one. Again, reviewed the need to lean her weight forward to be able to lift her bottom off the chair. "Nose over toes" Red theraband used for hip abduction, 2 sets of 8 reps. Performed pillow squeeze. 2 sets of 8. Performs bilateral shoulder flexion with ball 3 sets of 5 reps. While holding ball overhead, patient follows instructions to lean to left and right to work lateral trunk muscles. Performed with yellow theraband for shoulder horizontal abduction and scapular retraction. . Performs standing activities on large foam pad of weight shifting laterally, heel/toe raises, and mini-squats. Patient assisted onto [employer] Balance system trainer. Patient demonstrates more difficulty today with activities on Balance system trainer. She requires more verbal cues on which direction to shift her weight according to what the screen is showing. Performs on easiest skill level for Limits of Stability and weight shifting laterally and diagonally. She demonstrates slight labored breathing towards the end of activities on the Balance system trainer. Pulse Ox 96 %. Performed on leg press for heel raises and knee extension 2 sets of 8 reps. Performs on wood wobble board while sitting with 1.5# weight taped to each side,with very little assistance needed. Manual Therapy: N/A HOME EXERCISE PROGRAM: pillow squeeze (hip adduction isometrics) , practice of sit to stand transfers with leaning forward, yellow theraband for scapular retraction. - Charges Timed Code Treatment Minutes: 47 mins Total Treatment Time: 59 mins Procedures billed for this date of service:: Ex, Neuro, ther act Assessment: Patient has shown more need for instruction and assistance with sit to stand transfers. When she follows instructions to lean forward more, she does much better. She responds very well to the balance activities we are working on and shows potential for them to increase her safety with all mobility. Patient Education: Education of diagnosis, Body/Joint mechanics, Home Safety, Activity Modification, Education of Plan of Care Patient demonstrates compliance with HEP?: Yes Short Term Goals Goal #1: Patient independent and compliant with HEP. Goal to be met by: 09/30/17 Progress towards Goal:: Met Goal #2: Bilateral hip strength 4/5. Goal to be met by: 09/30/17 Progress towards Goal:: Partially Met Goal #3: Bilateral quad strength 4/5. Goal to be met by: 09/30/17 Progress towards Goal:: Partially Met Goal #4: Pt to perform sit to stand from seat height of 18 inches w/ CGA of one. Goal to be met by: 08/21/17 Progress towards Goal:: Met [employer]ship Goals Goal #1: Patient knows HEP and to continue with exercises following D/C from therapy Goal to be met by: 10/10/17 Progress towards goal: Progressing Goal #2: Score on Tinetti Assessment improved to 19/28,showing less fall risk. Goal to be met by: 10/10/17 Progress towards goal: Progressing Goal #3: Pt able to amb. community distances w/ good safety and minimal difficulty. Goal to be met by: 10/10/17 Progress towards goal: Progressing Goal #4: Pt will perform all transfers independently w/ good safety. Goal to be met by: 10/10/17 Progress towards goal: Progressing Plan PLAN OF CARE EXPIRES ON:: 10/10/17 ORDER # VISITS AND/OR THROUGH DATE: 10/10/17 PLAN: Added exercises to HEP, including safe balance activities that she can do at home alone.
--- NOTE | 2017-10-09 14:16 | RS.CXNS ---
Date of scheduled appointment: 10/09/17 Type: Cancel Reason for Cancel/NS: Patient's caregiver and hook up driver is sick and unable to bring Ms. Medrano to therapy today.
--- NOTE | 2017-10-14 10:30 | RS.CXNS ---
Date of scheduled appointment: 10/14/17 Type: Cancel Reason for Cancel/NS: Patient cancelled due to road conditions.
--- NOTE | 2017-10-14 10:39 | RS.OPPTDN ---
Subjective Date of Note: 10/07/17 Visit #: 15 Date of Evaluation: 08/06/17 Payer Source: MEDICARE Treatment Diagnosis: Gait abnormality, weakness, history of falls Current Subjective/complaints:: Ms. Medrano states left knee hurts with some of the exercises today. Asks if she will be able to ambulate with a cane. Interventions - Exercise/Activities/Manual Therapy Exercises/Activities: Sit to stand performed with patient demonstrating good use of UE's to push from chair. Still needs minimal cues to lean her weight forward. Patient has concerns that she will lean too far forward and fall. Red theraband used for hip abduction, 2 sets of 8 reps. Performed pillow squeeze. 2 sets of 8. Performs bilateral shoulder flexion with ball 3 sets of 5 reps. While holding ball overhead, patient follows instructions to lean to left and right to work lateral trunk muscles. Performed with yellow theraband for shoulder horizontal abduction and scapular retraction. . Performs standing activities on large foam pad of weight shifting laterally, heel/toe raises, and mini-squats. Patient assisted onto [employer] [place] Balance system trainer. Performs on easiest skill level for Limits of Stability and weight shifting laterally and diagonally. Performed on leg press for heel raises and knee extension 2 sets of 8 reps. Performs on wood wobble board while sitting with 1.5# weight taped to each side, 2 sets of 8 reps. Assistance needed to keep board from slipping on the floor. Discussed continuing the following exercises for HEP: sitting hip flexion, sitting long arc quad, standing hip abduction, mini knee bends, and sitting bilateral shoulder flexion with ball or cane. Total minutes of Exercise: 42 mins Manual Therapy: N/A HOME EXERCISE PROGRAM: pillow squeeze (hip adduction isometrics) , practice of sit to stand transfers with leaning forward, yellow theraband for scapular retraction. - Objective Findings Observations,measurements,etc.: Patient ambulated in department with a straight cane in the right hand with min assist of one a total of 60 feet. Patient demonstrates slightly unsteady gait and appears less confident. - Charges Timed Code Treatment Minutes: 42 mins Total Treatment Time: 57 mins Procedures billed for this date of service:: EX, Neuro, Ther act Assessment: Patient is very receptive to continuing exercises for home. Discussed her increased safety with use of her rollator instead of a cane. She admits to feeling more confident with the rollator. Short Term Goals Goal #1: Patient independent and compliant with HEP. Goal to be met by: 09/30/17 Progress towards Goal:: Met Goal #2: Bilateral hip strength 4/5. Goal to be met by: 09/30/17 Progress towards Goal:: Partially Met Goal #3: Bilateral quad strength 4/5. Goal to be met by: 09/30/17 Progress towards Goal:: Partially Met Goal #4: Pt to perform sit to stand from seat height of 18 inches w/ CGA of one. Goal to be met by: 08/21/17 Progress towards Goal:: Met Longterm Goals Goal #1: Patient knows HEP and to continue with exercises following D/C from therapy Goal to be met by: 10/10/17 Progress towards goal: Progressing Goal #2: Score on Tinetti Assessment improved to 19/28,showing less fall risk. Goal to be met by: 10/10/17 Progress towards goal: Progressing Goal #3: Pt able to amb. community distances w/ good safety and minimal difficulty. Goal to be met by: 10/10/17 Progress towards goal: Progressing Goal #4: Pt will perform all transfers independently w/ good safety. Goal to be met by: 10/10/17 Progress towards goal: Progressing Plan PLAN OF CARE EXPIRES ON:: 10/10/17 ORDER # VISITS AND/OR THROUGH DATE: 10/10/17 PLAN: Continue to progress balance and strengthening exericises. will continue for one additional visit for addressing final HEP summary.
--- NOTE | 2017-10-23 14:03 | RS.OPPTDC ---
Date of Discharge: 10/23/17 Date of Evaluation: 08/06/17 Number of Visits: 15 Treatment Diagnosis: Gait abnormality, weakness, history of falls Current Complaints/Gains: Patient states she will continue exercises at home. Recently reports more right hip pain and left knee pain. Functional Outcome Measure Tinetti: 15 (=46.25% impairment) - G Codes & Severity Modifier G Codes & Modifier: Mob DC CK. Mob goal CJ Source of G Code score: Tinetti Assessment Gait - Gait Pattern Gait Comments: Patient ambulates with rollator independently. She demonstrates minimal foot clearance, but will improve with verbal cues. Sit to stand SBA with 2-3 attempts. Interventions - Exercise/Activities/Manual Therapy Exercises/Activities: NA Manual Therapy: N/A HOME EXERCISE PROGRAM: pillow squeeze (hip adduction isometrics) , practice of sit to stand transfers with leaning forward, yellow theraband for scapular retraction. - Charges Timed Code Treatment Minutes: NA Total Treatment Time: NA Procedures billed for this date of service:: NA Assessment Assessment: Patient made progress with therapy. The last five therapy sessions have shown no significant progress. Tinetti score on last session is the same as on 10th visit. She demonstrates understanding and ability to perform HEP. Short Term Goals Goal #1: Patient independent and compliant with HEP. Goal to be met by: 09/30/17 Progress towards Goal:: Met Goal #2: Bilateral hip strength 4/5. Goal to be met by: 09/30/17 Progress towards Goal:: Partially Met Goal #3: Bilateral quad strength 4/5. Goal to be met by: 09/30/17 Progress towards Goal:: Partially Met Goal #4: Pt to perform sit to stand from seat height of 18 inches w/ CGA of one. Goal to be met by: 08/21/17 Progress towards Goal:: Met Senior Living Goals Goal #1: Patient knows HEP and to continue with exercises following D/C from therapy Goal to be met by: 10/10/17 Progress towards goal: Met Goal #2: Score on Tinetti Assessment improved to ,showing less fall risk. Goal to be met by: 10/10/17 Progress towards goal: Not Met Goal #3: Pt able to amb. community distances w/ good safety and minimal difficulty. Goal to be met by: 10/10/17 Progress towards goal: Partially Met Goal #4: Pt will perform all transfers independently w/ good safety. Goal to be met by: 10/10/17 Progress towards goal: Partially Met Plan Reason for Discharge:: Maximum Potential Met
== END 2017-10-29 ==
PROVIDERS: ATTEND Family Medicine
DX: R26.9 Unspecified abnormalities of gait and mobility (principal)

== ENCOUNTER 2018-09-18 13:19 | Emergency (ER) | payer OTHER ==
[2018-09-18 13:48] VITALS: BP 0/0; TEMP 96.2; BMI 27.3
--- NOTE | 2018-09-18 13:53 | PCM.PROG ---
Time of : 13:08 (pt was noted to be in asystole , intubated with fixed dilated pupils )
== END 2018-09-18 15:30 | disposition expired ==
LOC: ED 13:19
DX: R09.2 Respiratory arrest (principal); I46.9 Cardiac arrest, cause unspecified
CPT/HCPCS: 99283